=== PATIENT | female | born 1965 | race Caucasian/White ===

== ENCOUNTER 2017-02-10 22:26 | Emergency (ER) | payer OTHER ==
[2017-02-10 22:31] VITALS: BP 144/81; PULSE 73; TEMP 98; BMI 27.1
[2017-02-11 01:03] LABS: URINE APPEARANCE CLEAR; URINE BILIRUBIN NEGATIVE (NEGATIVE); URINE BLOOD NEGATIVE (NEGATIVE); URINE COLOR LTYELLOW; URINE GLUCOSE (UA) NEGATIVE (NEGATIVE); URINE KETONE NEGATIVE (NEGATIVE); URINE LEUK ESTERASE NEGATIVE (NEGATIVE); URINE NITRITE NEGATIVE (NEGATIVE); URINE PROTEIN NEGATIVE (NEGATIVE); URINE UROBILINOGEN NEGATIVE mg/dL (0.2-1.0)
--- NOTE | 2017-02-11 01:08 | PDOC ---
History of Present Illness - General Chief Complaint: Back Pain Stated Complaint: LOWER BACK PAIN Time Seen by Provider: 02/10/17 23:55 History Source: Patient, Significant Other Exam Limitations: No Limitations - History of Present Illness Initial Comments: 02/11/17 01:05 51yo Female patient w/ PmHx: Hysterectomy, Heart Failure, Pacemaker/ Defibrillator, UTI presents to ED c/o back pain that began yesterday and worsened today. Patient states pain starts in lower back and radiates down posterior left leg. Patient denies trauma, injury, fall, chronic back issues, dysuria, hematuria, rectal bleeding, abdominal pain, diff breathing, chest pains , or any other complaints at this time. LNMP: Hysterectomy. PCP: Dr. Solis Occurred: reports: yesterday. denies: just prior to arrival, this morning, this afternoon, this evening, last week, other Severity: reports: moderate. denies: mild, severe Pain Location: reports: back, lower extremity. denies: none, abdomen, chest, face, head, mouth, neck, other, pelvis, upper extremity Method of Injury: No: unknown, assault, direct blow, fall, motor vehicle crash, other Modifying Factors: improves with: pain medication. worse with: None, cold therapy, immobilization, rest, other Past History - Travel Traveled outside of the country in the last 30 days: No Close contact w/someone who was outside of country & ill: No - Past Medical History Allergies/Adverse Reactions: Allergies Allergy/AdvReac Type Severity Reaction Status Date / Time acetaminophen [From Percocet] Allergy Verified 02/10/17 22:32 morphine Allergy Verified 02/10/17 22:31 oxycodone HCl [From Percocet] Allergy Verified 02/10/17 22:32 Home Medications: Ambulatory Orders Carvedilol 3.125 mg PO BID 05/26/13 Digoxin [Lanoxin -] 0.125 mg PO DAILY 05/26/13 Furosemide [Lasix -] 20 mg PO DAILY 05/26/13 Spironolactone [Aldactone -] 25 mg PO DAILY 05/26/13 Enalapril Maleate [Vasotec -] 2.5 mg PO DAILY #0 tablet 05/29/13 [place]-3 Acid Ethyl Esters [Lovaza -] 1,000 mg PO BID #0 capsule 07/31/13 Aspirin [ASA -] 81 mg PO DAILY #0 tab.chew 09/16/13 Lisinopril 0 mg PO DAILY 12/28/15 Ibuprofen [Motrin -] 800 mg PO Q6H #30 tablet 06/14/16 Diazepam [Valium] 10 mg PO Q8H PRN #18 tablet MDD 6 tabs 02/11/17 Prednisone [Deltasone] 20 mg PO DAILY #8 tablet 02/11/17 Cardiac Disorders: Yes (chf, afib) HTN: Yes (HYPOTENSION) - Surgical History Cardiac Surgery: Yes (PACEMAKER/DEFIB--05/2012) - Immunization History Immunization Up to Date: Yes - Psycho/Social/Smoking Cessation Hx Anxiety: No Suicidal Ideation: No Smoking Status: No Smoking History: Never smoked Have you smoked in the past 12 months: No Number of Cigarettes Smoked Daily: 0 Cigars Per Day: 0 Hx Alcohol Use: No Drug/Substance Use Hx: No Substance Use Type: None Hx Substance Use Treatment: No Trauma Specific PMHX - Complaint Specific PMHX Arthritis: No Back Injury: No Neck Injury: No Hx Sacro Iliac Joint Dysfunction: No Review of Systems - Review of Systems Able to Perform ROS?: Yes Is the patient limited Kyrgyz proficient: No Musculoskeletal: Yes: Back Pain All Other Systems: Reviewed and Negative *Physical Exam - Vital Signs Last Vital Signs Temp Pulse Resp BP Pulse Ox 98 F 73 18 144/81 97 02/10/17 22:28 02/10/17 22:28 02/10/17 22:28 02/10/17 22:28 02/10/17 22:28 - Physical Exam General Appearance: Yes: Nourished, Appropriately Dressed, Moderate Distress. No: Apparent Distress, Mild Distress, Severe Distress Neck: positive: Trachea midline, Normal Thyroid, Supple. negative: Rigid, Stridor, Lymphadenopathy (R), Lymphadenopathy (L) Respiratory/Chest: positive: Lungs Clear, Normal Breath Sounds. negative: Chest Tender, Respiratory Distress, Accessory Muscle Use, Labored Respiration, Rapid RR, Stridor, Wheezing Cardiovascular: positive: Regular Rhythm, Regular Rate Gastrointestinal/Abdominal: positive: Normal Bowel Sounds, Soft. negative: Distended, Guarding, Rebound, Tenderness Musculoskeletal: positive: Normal Inspection, Other (+ Paraspinal lumbar tenderness.). negative: CVA Tenderness, Vertebral Tenderness Extremity: positive: Normal Capillary Refill, Normal Inspection, Normal Range of Motion. negative: Pedal Edema, Swelling, Calf Tenderness, Erythema, Inflammation Integumentary: positive: Normal Color, Dry, Warm Neurologic: positive: operations manager/coordinator II-XII NML intact, Fully Oriented, Alert, Normal Mood/ Affect, Normal Response, Motor Strength /5 Medical Decision Making - Medical Decision Making 02/11/17 02:23 Patient verbalized marked improvement in pain symptoms. Patient to f/u with Orthopedist. *DC/Admit/Observation/Transfer Diagnosis at time of Disposition: Sciatica Qualifiers: Laterality: left Qualified Code(s): M54.32 - Sciatica, left side - Discharge Dispostion Disposition: HOME Condition at time of disposition: Improved Admit: No - Prescriptions Prescriptions: Prednisone [Deltasone] 20 mg PO DAILY #8 tablet Diazepam [Valium] 10 mg PO Q8H PRN #18 tablet MDD 6 tabs PRN Reason: Back Pain - Referrals Referrals: Ronald Solis MD [Primary Care Provider] - Deandre Banda MD [Staff Physician] - - Patient Instructions Printed Discharge Instructions: DI for Back Pain With Sciatica Additional Instructions: Seguimiento con el Dr. Banda. Llame para programar facundo lizzy. [place] los medicamentos segn lo prescrito. No conduzca, mega alcohol ni opere maquinaria pesada mientras est tomando Valium. Motrin para el dolor segn sea necesario. Regrese si el dolor de espalda empeora con nuseas, vmitos, fiebre o cualquier otra queja en maciej momento. Follow up with Dr. Banda. Call to schedule appointment. Take medications as prescribed. Do not drive, drink alcohol, or operate heavy machinery while taking Valium. Motrin for pain as needed. Return if back pain worsens with nausea, vomiting, fever or any other complaints at this time. Print Language: LITHUANIAN
[2017-02-11] MEDS ORDERED: predniSONE 20 MG TABLET (UD) PO ONE (01:37)
[2017-02-11] MEDS ORDERED: KETOROLAC TROMETHAMINE 30 MG/1 ML VIAL IM ONE (01:37)
[2017-02-11] MEDS ORDERED: diazePAM 5 MG TABLET PO ONE (01:37)
[2017-02-11] MEDS ORDERED: diazePAM 5 MG TABLET ONE (02:00)
[2017-02-11] MEDS ORDERED: predniSONE 20 MG TABLET (UD) ONE (02:00)
[2017-02-11] MEDS ORDERED: KETOROLAC TROMETHAMINE 30 MG/1 ML VIAL ONE (02:01)
== END 2017-02-11 02:47 | disposition home or self-care (01) ==
LOC: JER 22:26
DX: M54.42 Lumbago with sciatica, left side (principal); I48.91 Unspecified atrial fibrillation; I50.9 Heart failure, unspecified; Z95.810 Presence of automatic (implantable) cardiac defibrillator; Z87.440 Personal history of urinary (tract) infections
CPT/HCPCS: 81003; 84703; 87086; 99281-25

== ENCOUNTER 2017-04-25 10:15 | Emergency (ER) | payer OTHER ==
[2017-04-25 10:19] VITALS: TEMP 98.6; BMI 27.6
--- NOTE | 2017-04-25 10:42 | PDOC ---
History of Present Illness - General Chief Complaint: Weakness Stated Complaint: DIZZINESS, COLD (PACEMAKER) Time Seen by Provider: 04/25/17 10:29 History Source: Patient - History of Present Illness Severity: moderate Associated Symptoms: reports: chest pain, cough, malaise, shortness of breath. denies: fever/chills, headaches, nausea/vomiting Past History - Past Medical History Allergies/Adverse Reactions: Allergies Allergy/AdvReac Type Severity Reaction Status Date / Time acetaminophen [From Percocet] Allergy Verified 04/25/17 10:19 morphine Allergy Verified 04/25/17 10:19 oxycodone HCl [From Percocet] Allergy Verified 04/25/17 10:19 Home Medications: Ambulatory Orders Carvedilol 3.125 mg PO BID 05/26/13 Digoxin [Lanoxin -] 0.125 mg PO DAILY 05/26/13 Furosemide [Lasix -] 20 mg PO DAILY 05/26/13 Spironolactone [Aldactone -] 25 mg PO DAILY 05/26/13 Enalapril Maleate [Vasotec -] 2.5 mg PO DAILY #0 tablet 05/29/13 [place]-3 Acid Ethyl Esters [Lovaza -] 1,000 mg PO BID #0 capsule 07/31/13 Aspirin [ASA -] 81 mg PO DAILY #0 tab.chew 09/16/13 Cholecalciferol (Vitamin D3) [Vitamin D3 -] 50,000 unit PO WEEKLY 04/25/17 Ibuprofen [Motrin -] 800 mg PO Q6H PRN 04/25/17 Rosuvastatin Calcium [Crestor] 20 mg PO DAILY 04/25/17 Valacyclovir HCl [Valtrex] 1,000 mg PO TID 04/25/17 Cardiac Disorders: Yes (chf, afib (pacemaker/def)) HTN: Yes (HYPOTENSION) - Surgical History Cardiac Surgery: Yes (PACEMAKER/DEFIB--05/2012) - Immunization History Immunization Up to Date: Yes - Suicide/Smoking/Psychosocial Hx Smoking Status: No Smoking History: Never smoked Have you smoked in the past 12 months: No Number of Cigarettes Smoked Daily: 0 Cigars Per Day: 0 Information on smoking cessation initiated: No Hx Alcohol Use: No Drug/Substance Use Hx: No Substance Use Type: None Hx Substance Use Treatment: No Review of Systems - Review of Systems Constitutional: Yes: Malaise. No: Chills, Fever HEENTM: No: Ear Pain, Throat Pain Respiratory: Yes: Cough, Shortness of Breath. No: Wheezing Cardiac (ROS): Yes: Chest Tightness *Physical Exam - Vital Signs Last Vital Signs Temp Pulse Resp BP Pulse Ox 98.6 F 75 18 117/71 97 04/25/17 10:17 04/25/17 10:17 04/25/17 10:17 04/25/17 10:04/25/17 10:17 - Physical Exam General Appearance: Yes: Appropriately Dressed. No: Apparent Distress HEENT: positive: Normal ENT Inspection, Normal Voice Neck: positive: Supple Respiratory/Chest: positive: Lungs Clear, Normal Breath Sounds. negative: Respiratory Distress Cardiovascular: positive: Regular Rate, S1, S2 Gastrointestinal/Abdominal: positive: Soft. negative: Tender Extremity: positive: Normal Inspection. negative: Pedal Edema Integumentary: positive: Dry, Warm Neurologic: positive: Fully Oriented, Alert, Normal Mood/Affect Heart Score/ECG Review - ECG Intrepretation Comment:: 04/25/17 11:04 EKG w/ paced rhythm as d/w Dr Godfrey, similar to ekg 04/201404/25/17 11:25 ED Treatment Course - LABORATORY CBC & Chemistry Diagram: 04/25/17 10:55 04/25/17 10:55 - RADIOLOGY Radiology Studies Ordered: Category Date Time Status CHEST X-RAY PORTABLE* [RAD] Stat Radiology 04/25/17 10:37 Ordered Medical Decision Making - Medical Decision Making 04/25/17 10:39 51-year-old female, history of dilated cardiomyopathy, w/ AICD/PPM in place ( 3rd one now, last placed in 2011), follows up with EPS/cards at [facility], here with mostly non-productive cough with chest tightness, ? shortness of breath and generalized body aches that started 2 days ago. No fever or chills. Denies any diaphoresis, nausea, vomiting, or lower extremity swelling. Denies firing of her AICD See exam ? Viral syndrome Stable in ED and appears mildly uncomfortable, rest or exam unremarkable -pain control -labs/ua/cxr -ekg given cp and ?sob 04/25/17 10:48 04/25/17 11:01 10/11/17 11:51 Labs and CXR unremarkable. Dc w/ supportive treatment and PMD follow-up 04/25/17 12:11 *DC/Admit/Observation/Transfer Diagnosis at time of Disposition: Viral syndrome - Discharge Dispostion Disposition: HOME Condition at time of disposition: Good - Referrals Referrals: Ronald Solis MD [Primary Care Provider] - - Patient Instructions Printed Discharge Instructions: DI for Viral Syndrome Additional Instructions: Your labs and chest x-ray were normal. You most likely have a viral illness Rest, drink plenty of fluids and take OTC meds for symptoms Please follow up with your PMD
[2017-04-25 11:03] LABS: BASOPHIL 0.9 % (0-2.0); EOSINOPHIL 2.1 % (0-4.5); MCHC 32.1 g/dl (32.0-36.0); MEAN CELL VOLUME 87.1 fl (80-96); MEAN PLT VOLUME 9.1 fl (7.5-11.1); NEUTROPHILS 68.4 % (42.8-82.8); PLATELET COUNT 131 K/MM3 (134-434); RDW 15.1 % (11.6-15.6); WHITE BLOOD COUNT 3.1 K/mm3 (4.0-10.0)
[2017-04-25] MEDS ORDERED: guaiFENesin 200 MG/10 ML 10 ML UNIT-DOSE CUPS PO ONE (11:05)
[2017-04-25] MEDS ORDERED: guaiFENesin 200 MG/10 ML 10 ML UNIT-DOSE CUPS ONE (11:25)
[2017-04-25 11:26] LABS: ALBUMIN 3.7 g/dl (3.4-5.0); ANION GAP 5 (8-16); CALCIUM 8.6 mg/dL (8.5-10.1); CO2 31 mmol/L (21-32); CREATININE 0.7 mg/dL (0.55-1.02); GLUCOSE,RANDOM 88 mg/dL (74-106); SGOT/AST 54 U/L (15-37); SGPT/ALT 59 U/L (12-78)
[2017-04-25 11:30] LABS: ALK PHOS 117 U/L (45-117); BILIRUBIN,TOTAL 0.6 mg/dL (0.2-1.0); CPK 192 IU/L (26-192); TOT PROT 7.6 g/dl (6.4-8.2); TROPONIN I < 0.02 ng/ml (0.00-0.05)
[2017-04-25 12:12] LABS: URINE APPEARANCE CLEAR; URINE BILIRUBIN NEGATIVE (NEGATIVE); URINE BLOOD NEGATIVE (NEGATIVE); URINE COLOR STRAW; URINE GLUCOSE (UA) NEGATIVE (NEGATIVE); URINE KETONE NEGATIVE (NEGATIVE); URINE NITRITE NEGATIVE (NEGATIVE); URINE PROTEIN NEGATIVE (NEGATIVE); URINE UROBILINOGEN NEGATIVE mg/dL (0.2-1.0)
[2017-04-25 12:19] VITALS: BP 123/80; PULSE 78
[2017-04-25 16:46] LABS: URINE LEUK ESTERASE Negative (NEGATIVE)
--- NOTE | 2017-04-26 11:59 | EKG ---
Test Reason : Blood Pressure : / mmHG Vent. Rate : 073 BPM Atrial Rate : 073 BPM P-R Int : 000 ms QRS Dur : 144 ms QT Int : 486 ms P-R-T Axes : 013 115 023 degrees QTc Int : 535 ms Ventricular-paced rhythm ABNORMAL ECG WHEN COMPARED WITH ECG OF 21-APR-2014 10:01, VENT. RATE HAS INCREASED BY 6 BPM Confirmed by MILO ANDERSON MD ([id number]) on 04/26/2017 11:59:03 AM Referred By: Confirmed By:MILO ANDERSON MD
== END 2017-04-25 12:18 | disposition home or self-care (01) ==
LOC: JER 10:15
DX: B34.9 Viral infection, unspecified (principal); I42.8 Other cardiomyopathies; Z95.0 Presence of cardiac pacemaker; E03.9 Hypothyroidism, unspecified; I48.91 Unspecified atrial fibrillation; I50.9 Heart failure, unspecified
CPT/HCPCS: 36415; 71010-TC; 80053; 81003; 82550; 82553; 83880; 84484; 85025; 87804; 93005; 93010; 99282-25

== ENCOUNTER 2020-06-15 16:59 | Emergency (ER) | payer OTHER | END 2020-06-15 17:28 | disposition home or self-care (01) | LOC: JVIRT 16:59 | DX: Z11.59 Encounter for screening for other viral diseases (principal) | CPT/HCPCS: C9803; Q3014-GT; U0003 ==

== ENCOUNTER 2022-03-31 13:53 | Emergency (ER) | payer OTHER ==
[2022-03-31 14:15] VITALS: TEMP 97.9; BMI 27.8
[2022-03-31] MEDS ORDERED: SODIUM CHLORIDE 0.9% 500 ML INFUS.BAG IV ONE (14:31)
[2022-03-31] MEDS ORDERED: METOCLOPRAMIDE HCL INJECTION 10 MG/2 ML VIAL IVPB ONE (15:31)
[2022-03-31] MEDS ORDERED: METOCLOPRAMIDE HCL INJECTION 10 MG/2 ML VIAL ONE (15:41)
[2022-03-31 15:55] LABS: BASO % 0.7 % (0-2.0); EOS % 1.5 % (0-4.5); HEMATOCRIT 36.2 % (32.4-45.2); LYMPH % 32.8 % (8-40); MCH 29.6 pg (25.7-33.7); MCHC 33.1 g/dl (32.0-36.0); MEAN CELL VOLUME 89.6 fl (80-96); MEAN PLT VOLUME 9.4 fl (7.5-11.1); MONO % 7.4 % (3.8-10.2); NEUT % 57.6 % (42.8-82.8); PLATELET COUNT 190 10^3/uL (134-434); RBC 4.04 M/mm3 (3.60-5.2); RDW 13.8 % (11.6-15.6); WHITE BLOOD COUNT 3.2 K/mm3 (4.0-10.0)
[2022-03-31 16:01] LABS: INR 1.06 (0.83-1.09); PROTHROMBIN TIME (PATIENT) 12.2 SEC (9.7-13.0)
[2022-03-31 16:04] LABS: ACTIVATED PTT 33.2 SECONDS (25.2-36.5)
[2022-03-31 16:16] LABS: BLOOD UREA NITROGEN 20.1 mg/dL (7-18); CALCIUM 8.9 mg/dL (8.5-10.1); MAGNESIUM 2.2 mg/dL (1.8-2.4)
[2022-03-31 16:22] LABS: BILIRUBIN,TOTAL 0.4 mg/dL (0.2-1); TOT PROT 7.8 g/dl (6.4-8.2)
[2022-03-31 19:20] VITALS: BP 100/61; PULSE 64; RESP 18
== END 2022-03-31 19:45 | disposition home or self-care (01) ==
LOC: JER 13:53
PROC: 3E033GC Introduction of Other Therapeutic Substance into Peripheral Vein, Percutaneous Approach (ICD-10-PCS; principal; 2022-03-31)
DX: U07.1 COVID-19 (principal)
CPT/HCPCS: 0241U-QW; 36415; 71045-TC-FY; 80053; 83735; 84484; 85025; 85610; 85730; 87040; 93005; 93010; 99285-25